=== PATIENT | female | born 1975 | race Two or more races ===

== ENCOUNTER 2018-12-16 10:50 | Emergency (ER) | payer SELFPAY ==
[2018-12-16] MEDS ORDERED: Sodium Chloride 0.9% 1,000 ML IV ONE (10:53)
[2018-12-16] MEDS ORDERED: Ondansetron 4 MG/2 ML SDV IVPUSH ONE (10:53)
[2018-12-16] MEDS ORDERED: Ketorolac 30 MG/ML SDV IVPUSH ONE (10:53)
--- NOTE | 2018-12-16 10:53 | EDM.PDOC ---
ED HPI GENERAL MEDICAL PROBLEM - General Chief Complaint: Abdominal Pain Stated Complaint: ABDOMINAL PAIN Time Seen by Provider: 12/16/18 10:53 Source of Information: Reports: Patient History Limitations: Reports: No Limitations - History of Present Illness INITIAL COMMENTS - FREE TEXT/NARRATIVE: HISTORY AND PHYSICAL: History of present illness: Patient is a 43-year-old female who presents to the emergency room today with complaints of right lower quadrant pain that radiates into her rectum. She has noticed these symptoms over the past weeks to months, but has been more bothersome over the past 2-3 days. She states she has been eating and drinking appropriately and the pain is not associated with eating or physical activity. Patient denies any fever, chills, headache, change in vision, syncope or near syncope. Denies any chest pain, back pain, shortness of breath or cough. Denies any vomiting, diarrhea, constipation or dysuria. Has not noted any blood in urine or stool. Patient has been eating and drinking appropriately. No rectal related injury or trauma. Review of systems: As per history of present illness and below otherwise all systems reviewed and negative. Past medical history: As per history of present illness and as reviewed below otherwise noncontributory. Surgical history: As per history of present illness and as reviewed below otherwise noncontributory. Social history: See social history for further information Family history: As per history of present illness and as reviewed below otherwise noncontributory. Physical exam: General: Well-developed and well-nourished 43-year-old female. Alert and oriented. Nontoxic appearing and in no acute distress. HEENT: Atraumatic, normocephalic, pupils equal and reactive bilaterally, negative for conjunctival pallor or scleral icterus, mucous membranes moist, trachea midline. No drooling or trismus noted. No meningeal signs. No hot potato voice noted. Lungs: Clear to auscultation, breath sounds equal bilaterally, chest nontender. Heart: S1S2, regular rate and rhythm without overt murmur Abdomen: Soft, nondistended, nontender. Negative for masses or hepatosplenomegaly. Negative for costovertebral tenderness. Pelvis: Stable nontender. Genitourinary: Deferred. Rectal: This was done with consent and a garment tag stringer at the bedside. Patient does have small external hemorrhoids noted at 6 o'clock position. Negative Hemoccult stool. She is uncomfortable with digital exam. No internal hemorrhoids were palpable Skin: Intact, warm, dry. No lesions or rashes noted. Extremities: Atraumatic, moves all extremities per self without difficulty or deficits. Neurovascular unremarkable. Neuro: Awake, alert, oriented. Cranial nerves II through XII unremarkable. Cerebellum unremarkable. Motor and sensory unremarkable throughout. Exam nonfocal. Notes: Lab work is unremarkable. CT shows mildly enlarged left ovary with rim enhancing cyst could be from early involution. Adjacent mesenteric edema which could potentially be rib related to the left ovary. Correlate with symptoms. Some vascularity appears to be present with enhancement but could consider pelvic ultrasound with Doppler evaluation to confirm ovarian arterial blood flow. Left side mesenteric edema is nonspecific and could also be associated with other inflammatory process however no associated bowel wall thickening, obstruction, mass, lymphadenopathy or extraluminal fluid collection. Ultrasound ordered, and shows no acute findings. Supportive care measures were reviewed and discussed. We'll give her a prescription for Anusol and tramadol. Encouraged her to follow-up with primary care. Voices understanding and is agreeable to plan of care. Denies any further questions or concerns at this time. Diagnostics: CBC, CMP, UA, urine , lipase, CT abdomen and pelvis, Pelvic ultrasound Therapeutics: IV fluid, Zofran, Toradol Prescription: Anusol Supp. Tramadol (#15) Impression: Abdominal pain Hemorrhoid, external Plan: 1. Briscoe diet, advance as tolerated. 2. Take the prescriptions as needed and as directed. 3. Follow-up with your primary care provider as we discussed. Return to the ED as needed and as discussed. Definitive disposition and diagnosis as appropriate pending reevaluation and review of above. Right Lower Abdominal Pain Score (Numeric/FACES): 10 - Related Data Allergies Allergy/AdvReac Type Severity Reaction Status Date / Time No Known Allergies Allergy Verified 12/16/18 11:07 Home Meds: Home Meds . [No Known Home Meds] 12/16/18 [History] ED ROS GENERAL - Review of Systems Review Of Systems: ROS reveals no pertinent complaints other than HPI. ED EXAM, GI/ABD - Physical Exam Exam: See Below (See dictation) Course - Vital Signs Last Recorded V/S: Last Vital Signs Temp 96.8 F 12/16/18 10:51 Pulse 65 12/16/18 15:28 Resp 18 12/16/18 15:28 BP 98/59 L 12/16/18 15:28 Pulse Ox 97 12/16/18 15:28 - Orders/Labs/Meds Orders: Active Orders 24 hr Category Date Time Status Hemoccult [Fecal Occult Blood Collection] [RC] Care 12/16/18 11:14 Active ASDIRECTED Labs: Laboratory Tests 12/16/18 12/16/18 12/16/18 Range/Units 11:10 11:10 11:20 WBC 4.66 (4.0-11.0) K/uL RBC 4.34 (4.30-5.90) M/uL Hgb 12.7 (12.0-16.0) g/dL Hct 37.7 (36.0-46.0) % MCV 86.9 (80.0-98.0) fL MCH 29.3 (27.0-32.0) pg MCHC 33.7 (31.0-37.0) g/dL RDW Std Deviation 44.3 (28.0-62.0) fl RDW Coeff of Kye 14 (11.0-15.0) % Plt Count 272 (150-400) K/uL MPV 10.00 (7.40-12.00) fL Neut % (Auto) 64.5 (48.0-80.0) % Lymph % (Auto) 25.8 (16.0-40.0) % [place] % (Auto) 8.2 (0.0-15.0) % Eos % (Auto) 1.3 (0.0-7.0) % Baso % (Auto) 0.2 (0.0-1.5) % Neut # (Auto) 3.0 (1.4-5.7) K/uL Lymph # (Auto) 1.2 (0.6-2.4) K/uL [place] # (Auto) 0.4 (0.0-0.8) K/uL Eos # (Auto) 0.1 (0.0-0.7) K/uL Baso # (Auto) 0.0 (0.0-0.1) K/uL Nucleated RBC % 0.0 /100WBC Nucleated RBCs # 0 K/uL Sodium 135 L (136-145) mmol/L Potassium 3.9 (3.5-5.1) mmol/L Chloride 101 (98-107) mmol/L Carbon Dioxide 28.1 (21.0-32.0) mmol/L BUN 15 (7.0-18.0) mg/dL Creatinine 0.8 (0.6-1.0) mg/dL Est Cr Clr Drug Dosing TNP Estimated GFR (MDRD) > 60.0 ml/min Glucose 84 (74-106) mg/dL Calcium 9.0 (8.5-10.1) mg/dL Total Bilirubin 0.4 (0.2-1.0) mg/dL AST 16 (15-37) IU/L ALT 22 (14-63) IU/L Alkaline Phosphatase 76 (46-116) U/L Total Protein 7.7 (6.4-8.2) g/dL Albumin 3.8 (3.4-5.0) g/dL Globulin 3.9 (2.6-4.0) g/dL Albumin/Globulin Ratio 1.0 (0.9-1.6) Lipase 156 (73-393) U/L Urine Color YELLOW Urine Appearance CLEAR Urine pH 6.0 (5.0-8.0) Ur Specific [place] 1.020 (1.001-1.035) Urine Protein NEGATIVE (NEGATIVE) mg/dL Urine Glucose (UA) NEGATIVE (NEGATIVE) mg/dL Urine Ketones NEGATIVE (NEGATIVE) mg/dL Urine Occult Blood NEGATIVE (NEGATIVE) Urine Nitrite NEGATIVE (NEGATIVE) Urine Bilirubin NEGATIVE (NEGATIVE) Urine Urobilinogen 0.2 (<2.0) EU/dL Ur Leukocyte Esterase NEGATIVE (NEGATIVE) Urine HCG, Qual (NEGATIVE) 12/16/18 Range/Units 11:20 WBC (4.0-11.0) K/uL RBC (4.30-5.90) M/uL Hgb (12.0-16.0) g/dL Hct (36.0-46.0) % MCV (80.0-98.0) fL MCH (27.0-32.0) pg MCHC (31.0-37.0) g/dL RDW Std Deviation (28.0-62.0) fl RDW Coeff of Kye (11.0-15.0) % Plt Count (150-400) K/uL MPV (7.40-12.00) fL Neut % (Auto) (48.0-80.0) % Lymph % (Auto) (16.0-40.0) % [place] % (Auto) (0.0-15.0) % Eos % (Auto) (0.0-7.0) % Baso % (Auto) (0.0-1.5) % Neut # (Auto) (1.4-5.7) K/uL Lymph # (Auto) (0.6-2.4) K/uL [place] # (Auto) (0.0-0.8) K/uL Eos # (Auto) (0.0-0.7) K/uL Baso # (Auto) (0.0-0.1) K/uL Nucleated RBC % /100WBC Nucleated RBCs # K/uL Sodium (136-145) mmol/L Potassium (3.5-5.1) mmol/L Chloride (98-107) mmol/L Carbon Dioxide (21.0-32.0) mmol/L BUN (7.0-18.0) mg/dL Creatinine (0.6-1.0) mg/dL Est Cr Clr Drug Dosing Estimated GFR (MDRD) ml/min Glucose (74-106) mg/dL Calcium (8.5-10.1) mg/dL Total Bilirubin (0.2-1.0) mg/dL AST (15-37) IU/L ALT (14-63) IU/L Alkaline Phosphatase (46-116) U/L Total Protein (6.4-8.2) g/dL Albumin (3.4-5.0) g/dL Globulin (2.6-4.0) g/dL Albumin/Globulin Ratio (0.9-1.6) Lipase (73-393) U/L Urine Color Urine Appearance Urine pH (5.0-8.0) Ur Specific [place] (1.001-1.035) Urine Protein (NEGATIVE) mg/dL Urine Glucose (UA) (NEGATIVE) mg/dL Urine Ketones (NEGATIVE) mg/dL Urine Occult Blood (NEGATIVE) Urine Nitrite (NEGATIVE) Urine Bilirubin (NEGATIVE) Urine Urobilinogen (<2.0) EU/dL Ur Leukocyte Esterase (NEGATIVE) Urine HCG, Qual NEGATIVE (NEGATIVE) Meds: Medications Discontinued Medications Generic Name Dose Route Start Last Admin Trade Name Freq PRN Reason Stop Dose Admin Sodium Chloride 1,000 mls @ 999 mls/hr 12/16/18 10:53 12/16/18 11:16 Normal Saline IV 12/16/18 11:53 999 mls/hr STAT ONE Administration Ketorolac Tromethamine 30 mg 12/16/18 10:53 12/16/18 11:16 Toradol IVPUSH 12/16/18 10:54 30 mg ONETIME ONE Administration Morphine Sulfate 2 mg 12/16/18 12:05 12/16/18 12:13 Morphine IVPUSH 12/16/18 12:06 2 mg ONETIME ONE Administration Ondansetron HCl 4 mg 12/16/18 10:53 12/16/18 11:16 Zofran IVPUSH 12/16/18 10:54 4 mg ONETIME ONE Administration Departure - Departure Time of Disposition: 15:20 Disposition: Home, Self-Care 01 Clinical Impression: External hemorrhoid, Right sided abdominal pain - Discharge Information Instructions: Abdominal Pain, Adult, [id number] Referrals: PCP,None [Primary Care Provider] - Forms: ED Department Discharge Additional Instructions: The following information is given to patients seen in the emergency department who are being discharged to home. This information is to outline your options for follow-up care. We provide all patients seen in our emergency department with a follow-up referral. The need for follow-up, as well as the timing and circumstances, are variable depending upon the specifics of your emergency department visit. If you don't have a primary care physician on staff, we will provide you with a referral. We always advise you to contact your personal physician following an emergency department visit to inform them of the circumstance of the visit and for follow-up with them and/or the need for any referrals to a consulting specialist. The emergency department will also refer you to a specialist when appropriate. This referral assures that you have the opportunity for follow-up care with a specialist. All of these measure are taken in an effort to provide you with optimal care, which includes your follow-up. Under all circumstances we always encourage you to contact your private physician who remains a resource for coordinating your care. When calling for follow-up care, please make the office aware that this follow-up is from your recent emergency room visit. If for any reason you are refused follow-up, please contact the [facility] Emergency Department at and asked to speak to the emergency department charge nurse. [facility] [address] [place] [address] [address] 1. [place] diet, advance as tolerated. 2. Take the prescriptions as needed and as directed. 3. Follow-up with your primary care provider as we discussed. Return to the ED as needed and as discussed. - My Orders Last 24 Hours: My Active Orders 12/16/18 11:14 Hemoccult [Fecal Occult Blood Collection] [RC] ASDIRECTED - Assessment/Plan Last 24 Hours: My Active Orders 12/16/18 11:14 Hemoccult [Fecal Occult Blood Collection] [RC] ASDIRECTED
[2018-12-16 11:58] LABS: CHLORIDE,CL 101 mmol/L (98-107); SODIUM,NA 135 mmol/L (136-145)
[2018-12-16] MEDS ORDERED: Morphine 2 MG/ML Syringe IVPUSH ONE (12:05)
--- NOTE | 2018-12-16 14:03 | CT ---
INDICATION : Lower quadrant pain TECHNIQUE : CT Scan of the abdomen pelvis. 100 cc nonionic IV contrast COMPARISON : No comparison FINDINGS: Pelvis: The uterus is normal size. Nabothian cysts in the cervix. The left ovary is enlarged. A cyst in the left ovary shows some rim enhancement with a slight undulating margins. The cyst measures approximately 2 cm. Some edema is present in the adjacent mesenteric fat, lateral to the left ovary with some thickening of the posterior peritoneum. Small calcification is also present in the left ovary. No free fluid in the pelvis. The right ovary is unremarkable. Mildly prominent endometrial complex most likely related to menstrual secretory phase cycle. The bladder is unremarkable. Liver: Mild periportal low attenuation and edema which is nonspecific. No biliary dilatation. No calcifications in the gallbladder. Spleen, pancreas, adrenal glands, kidneys: No significant abnormality. Normal renal cortical enhancement. GI tract: Normal caliber. Multiple decompressed loops of small bowel in the left abdomen in the area of the left-sided mesenteric edema. No signs for obstruction. Lung bases: Small triangular opacity right middle lobe subpleural probably an incidental intrapulmonary lymph node. Skeletal: Normal for age. IMPRESSION: 1. Mildly enlarged left ovary with rim enhancing cyst could be from early involution. Adjacent mesenteric edema which could potentially be rib related to the left ovary. Correlate with symptoms. Some vascularity appears to be present with enhancement but could consider pelvic ultrasound with Doppler evaluation to confirm ovarian arterial blood flow. 2. Left side mesenteric edema is nonspecific and could also be associated with other inflammatory process however no associated bowel wall thickening, obstruction, mass, lymphadenopathy or extraluminal fluid collection. Please note that all CT scans at this facility use dose modulation, iterative reconstruction, and/or weight-based dosing when appropriate to reduce radiation dose to as low as reasonably achievable. Dictated by Bienvenido Puente MD @ Dec 16 2018 2:02PM Signed by Dr. Bienvenido Puente @ Dec 16 2018 2:02PM
--- NOTE | 2018-12-16 15:12 | US ---
EXAMINATION: Transabdominal pelvic ultrasound HISTORY: Pain COMPARISON: CT from the same day. TECHNIQUE: Grayscale, color Doppler, and spectral Doppler imaging obtained. FINDINGS: Uterus is normal in size, contour, and echogenicity. The endometrial stripe thickness measures 1.3 cm. No uterine mass. Both the left and right ovaries are normal in size, contour, and echogenicity without an adnexal mass. Normal color and spectral Doppler flow. No significant free pelvic fluid. IMPRESSION: 1. Mildly prominent endometrial stripe, otherwise unremarkable pelvic ultrasound.
== END 2018-12-16 15:33 | disposition home or self-care (01) ==
LOC: MW.ED 10:50
DX: K64.4 Residual hemorrhoidal skin tags (principal); R10.31 Right lower quadrant pain
CPT/HCPCS: 36415; 74177; 76856; 80053; 81003; 81025; 83690; 85025; 96361; 96374; 96375; 99284; J1885; J2270; J2405; J7040

== ENCOUNTER 2019-02-08 08:21 | Emergency (ER) | payer SELFPAY ==
--- NOTE | 2019-02-08 08:34 | EDM.PDOC ---
ED HPI GENERAL MEDICAL PROBLEM - General Chief Complaint: Lower Extremity Injury/Pain Stated Complaint: ANKLE INJURY Time Seen by Provider: 02/08/19 08:24 Source of Information: Reports: Patient History Limitations: Reports: No Limitations - History of Present Illness INITIAL COMMENTS - FREE TEXT/NARRATIVE: History of present illness: []Patient twisted her right ankle this weekend and continued to walk on it this morning she had worsening pain and swelling. tingling. Review of systems: As per history of present illness and below otherwise all systems reviewed and negative. Past medical history: As per history of present illness and as reviewed below otherwise noncontributory. Surgical history: As per history of present illness and as reviewed below otherwise noncontributory. Social history: No reported history of drug or alcohol abuse. Family history: As per history of present illness and as reviewed below otherwise noncontributory. Physical exam: General: Well developed, well nourished in NAD HEENT: Atraumatic, normocephalic, pupils reactive, negative for conjunctival pallor or scleral icterus, mucous membranes moist, throat clear, neck supple, nontender, trachea midline. Lungs: Clear to auscultation, breath sounds equal bilaterally, chest nontender. Heart: S1S2, regular, negative for clicks, rubs, or JVD. Abdomen: NABS, Soft, nondistended, nontender. Negative for masses or hepatosplenomegaly. Negative for costovertebral tenderness. Pelvis: Stable nontender. Genitourinary: Deferred. Rectal: Deferred. Extremities: Atraumatic, or lateral malleolus tender is medial NVI negative for cords or calf pain. Neurovascular unremarkable. Neuro: Awake, alert, oriented. Cranial nerves II through XII unremarkable. Cerebellum unremarkable. Motor and sensory unremarkable throughout. Exam nonfocal. Skin:warm and dry Diagnostics: X-ray right ankle negative Therapeutics: Ibuprofen, splint ED Course: Stable Impression: Right ankle sprain Prescriptions: None Plan: Alejo ankle as much as possible, Take Tylenol and/or ibuprofen as directed, follow up with your primary care physician, return to ER if symptoms worsen or change. Definitive disposition and diagnosis as appropriate pending reevaluation and review of above. Right Ankle Pain Score (Numeric/FACES): 9 - Related Data Allergies Allergy/AdvReac Type Severity Reaction Status Date / Time No Known Allergies Allergy Verified 02/08/19 08:34 Home Meds: Home Meds . [No Known Home Meds] 12/16/18 [History] Past Medical History - Infectious Disease History Infectious Disease History: Reports: Chicken Pox, Measles, Mumps - Past Surgical History Female Surgical History: Reports: Tubal Ligation Social & Family History - Family History Family Medical History: Noncontributory Review of Systems - Review of Systems Review Of Systems: See Below ED EXAM, GENERAL - Physical Exam Exam: See Below Course - Vital Signs Last Recorded V/S: Last Vital Signs Temp 97.7 F 02/08/19 08:33 Pulse 86 02/08/19 08:33 Resp 18 02/08/19 08:33 BP 91/56 L 02/08/19 08:33 Pulse Ox 97 02/08/19 08:33 - Orders/Labs/Meds Orders: Active Orders 24 hr Category Date Time Status Splinting [RC] ASDIRECTED Care 02/08/19 09:23 Active Meds: Medications Discontinued Medications Generic Name Dose Route Start Last Admin Trade Name Cheryl PRN Reason Stop Dose Admin Ibuprofen 600 mg 02/08/19 08:41 02/08/19 09:04 Motrin PO 02/08/19 08:42 600 mg ONETIME ONE Administration Departure - Departure Time of Disposition: 09:34 Disposition: Home, Self-Care 01 Condition: Good Clinical Impression: Ankle sprain Qualifiers: Encounter type: initial encounter Involved ligament of ankle: unspecified ligament Laterality: right Qualified Code(s): S93.401A - Sprain of unspecified ligament of right ankle, initial encounter - Discharge Information *PRESCRIPTION DRUG MONITORING PROGRAM REVIEWED*: No *COPY OF PRESCRIPTION DRUG MONITORING REPORT IN PATIENT NHAN: No Referrals: PCP,Unknown [Primary Care Provider] - Forms: ED Department Discharge Additional Instructions: The following information is given to patients seen in the emergency department who are being discharged to home. This information is to outline your options for follow-up care. We provide all patients seen in our emergency department with a follow-up referral. The need for follow-up, as well as the timing and circumstances, are variable depending upon the specifics of your emergency department visit. If you don't have a primary care physician on staff, we will provide you with a referral. We always advise you to contact your personal physician following an emergency department visit to inform them of the circumstance of the visit and for follow-up with them and/or the need for any referrals to a consulting specialist. The emergency department will also refer you to a specialist when appropriate. This referral assures that you have the opportunity for follow-up care with a specialist. All of these measure are taken in an effort to provide you with optimal care, which includes your follow-up. Under all circumstances we always encourage you to contact your private physician who remains a resource for coordinating your care. When calling for follow-up care, please make the office aware that this follow-up is from your recent emergency room visit. If for any reason you are refused follow-up, please contact the [facility] Emergency Department at and asked to speak to the emergency department charge nurse. Take Tylenol and/or Motrin as directed, follow up with your primary care physician, return to ER if symptoms worsen or change. [facility] [address] [place] [address] - My Orders Last 24 Hours: My Active Orders 02/08/19 09:23 Splinting [RC] ASDIRECTED - Assessment/Plan Last 24 Hours: My Active Orders 02/08/19 09:23 Splinting [RC] ASDIRECTED
[2019-02-08] MEDS ORDERED: Ibuprofen 600 MG Tab PO ONE (08:41)
--- NOTE | 2019-02-08 09:25 | CR ---
INDICATION: Right ankle pain. TECHNIQUE: Three views of the right ankle. COMPARISON: None. FINDINGS: No soft tissue swelling, fracture, joint space narrowing or other abnormality. IMPRESSION: Negative right ankle. Dictated by Cirilo Henry MD @ Feb 08 2019 9:23AM Signed by Dr. Cirilo Henry @ Feb 08 2019 9:24AM
== END 2019-02-08 10:00 | disposition home or self-care (01) ==
LOC: MW.ED 08:21
DX: S93.401A Sprain of unspecified ligament of right ankle, initial encounter (principal); X50.9XXA Other and unspecified overexertion or strenuous movements or postures, initial encounter
CPT/HCPCS: 73610; 99283; A9270; 99282

== ENCOUNTER 2019-09-10 08:20 | Emergency (ER) | payer SELFPAY ==
--- NOTE | 2019-09-10 08:43 | EDM.PDOC ---
ED HPI GENERAL MEDICAL PROBLEM - General Chief Complaint: Fever Stated Complaint: FEVER/COUGH Time Seen by Provider: 09/10/19 08:32 Source of Information: Reports: Patient History Limitations: Reports: No Limitations, Language Barrier (translation provided by kaitlin, and myself) - History of Present Illness INITIAL COMMENTS - FREE TEXT/NARRATIVE: HISTORY OF PRESENT ILLNESS: Patient is a 43-year-old female who presents with 2 -day history of tactile fever sore throat and body aches. Pt reports odynophagia , 01/06. She denies any rash or neck stiffness. No known exposure to strep. Denies any chest pain or dyspnea. Has very mild occasional dry cough. No wheezing. No abdominal pain, vomiting or diarrhea. No urinary symptoms. No recent travel. REVIEW OF SYSTEMS: Other than the symptoms associated with the present events, the following is reported with regard to recent health: General: (+)tactile fever. HENT: (-) congestion. Respiratory: (+) cough. Cardiovascular: (-) chest pain. GI: (-) abdominal pain. : (-) urinary complaints. Musculoskeletal: (+) generalized myalgias. Endocrine: (-) generalized weakness. Neurological: (-) localized weakness. Skin: (-) rash PAST MEDICAL HISTORY: reviewed as per nursing notes SOCIAL HISTORY: reviewed as per nursing notes, MEDICATIONS: Per nurse's note ALLERGIES: Per nurse's note, reviewed by me PHYSICAL EXAMINATION: GENERALIZED APPEARANCE: well developed, well nourished in no distress VITAL SIGNS: Per nurse's note, reviewed by me SKIN: Warm, dry; (-) cyanosis; (-) rash. HEAD: (-) scalp swelling, (-) tenderness. EYES: (-) conjunctival pallor, (-) scleral icterus. ENMT: (-) stridor; mucous membranes moist. Mild pharyngeal erythema. No exudate. Uvula midline. No phonation changes. No trismus. Airway widely patent. NECK: (-) tenderness, (-) stiffness, CHEST AND RESPIRATORY: (-) rales, (-) rhonchi, (-) wheezes; breath sounds equal bilaterally. HEART AND CARDIOVASCULAR: (-) irregularity; (-) murmur, (-) gallop. ABDOMEN AND GI: Soft; (-) tenderness, (-) guarding, (-) rebound, (-) palpable masses, EXTREMITIES: (-) deformity, (-) edema. NEURO AND PSYCH: Alert. Cranial nerves grossly intact; strength symmetric. gait steady DIAGNOSTICS: strep neg influenza neg EMERGENCY DEPARTMENT COURSE AND TREATMENT: Patient's condition remained stable during Emergency Department evaluation. Based on history, physical exam, and diagnostic evaluation, the patient has symptoms consistent with acute pharyngitis. There is no obvious swelling of the peritonsillar area or abscess. The airway appears patent and respiratory pattern is normal. The patient has no trismus and is tolerating oral food and fluid. I felt that outpatient management with close followup by the patient's primary care provider in 1-2 days was appropriate. The patient's questions were answered, and discharge precautions and reasons to return to the clinic were discussed. The patient understands to return to the ED if symptoms do not improve as discussed, or if symptoms worsen. PLAN AND FOLLOW-UP: Patient received written and verbal instructions regarding this condition. Return to ED immediately with any new or worsening symptoms. Follow up to be arranged by patient with pcp in 1-2 days for further evaluation. Given discharge precautions. Patient expressed verbal understanding. Generalized Pain Score (Numeric/FACES): 6 - Related Data Allergies Allergy/AdvReac Type Severity Reaction Status Date / Time No Known Allergies Allergy Verified 09/10/19 08:37 Home Meds: Home Meds . [No Known Home Meds] 12/16/18 [History] Past Medical History - Past Health History Medical/Surgical History: Denies Medical/Surgical History - Infectious Disease History Infectious Disease History: Reports: Chicken Pox, Measles, Mumps - Past Surgical History Female Surgical History: Reports: Tubal Ligation Social & Family History - Family History Family Medical History: Noncontributory ED ROS GENERAL - Review of Systems Review Of Systems: See Below (see dictation) ED EXAM, GENERAL - Physical Exam Exam: See Below (see dictation) Course - Vital Signs Last Recorded V/S: Last Vital Signs Temp 97.6 F 09/10/19 08:37 Pulse 62 09/10/19 09:27 Resp 14 09/10/19 09:27 BP 110/72 09/10/19 09:27 Pulse Ox 98 09/10/19 09:27 - Orders/Labs/Meds Orders: Active Orders 24 hr Category Date Time Status CULTURE STREP A CONFIRMATION [RM] Stat Lab 09/10/19 08:30 Results STREP SCRN A RAPID W CULT CONF [RM] Stat Lab 09/10/19 08:30 Results Isolation [COMM] Routine Oth 09/10/19 08:36 Active Meds: Medications Discontinued Medications Generic Name Dose Route Start Last Admin Trade Name Cheryl PRN Reason Stop Dose Admin Dexamethasone 6 mg 09/10/19 09:17 09/10/19 09:22 Dexamethasone IM 09/10/19 09:18 6 mg ONETIME ONE Administration Departure - Departure Time of Disposition: :18 Disposition: Home, Self-Care 01 Condition: Good Clinical Impression: Pharyngitis - Discharge Information *PRESCRIPTION DRUG MONITORING PROGRAM REVIEWED*: Not Applicable *COPY OF PRESCRIPTION DRUG MONITORING REPORT IN PATIENT NHAN: Not Applicable Instructions: Pharyngitis, [id number] Referrals: PCP,Shen [Primary Care Provider] - Maximiliano Wilder [Ordering Only Provider] - 2 Days Forms: ED Department Discharge Additional Instructions: The following information is given to patients seen in the emergency department who are being discharged to home. This information is to outline your options for follow-up care. We provide all patients seen in our emergency department with a follow-up referral. The need for follow-up, as well as the timing and circumstances, are variable depending upon the specifics of your emergency department visit. If you don't have a primary care physician on staff, we will provide you with a referral. We always advise you to contact your personal physician following an emergency department visit to inform them of the circumstance of the visit and for follow-up with them and/or the need for any referrals to a consulting specialist. The emergency department will also refer you to a specialist when appropriate. This referral assures that you have the opportunity for follow-up care with a specialist. All of these measure are taken in an effort to provide you with optimal care, which includes your follow-up. Under all circumstances we always encourage you to contact your private physician who remains a resource for coordinating your care. When calling for follow-up care, please make the office aware that this follow-up is from your recent emergency room visit. If for any reason you are refused follow-up, please contact the [facility] Emergency Department at and asked to speak to the emergency department charge nurse. Sepsis Event Note - Focused Exam Vital Signs: Vital Signs Temp Pulse Resp BP Pulse Ox 09/10/19 09:27 62 14 110/72 98 09/10/19 08:37 97.6 F 86 15 106/54 L 96 Date Exam was Performed: 09/10/19 Time Exam was Performed: 11:01 - My Orders Last 24 Hours: My Active Orders 09/10/19 08:30 CULTURE STREP A CONFIRMATION [RM] Stat STREP SCRN A RAPID W CULT CONF [RM] Stat 09/10/19 08:36 Isolation [COMM] Routine - Assessment/Plan Last 24 Hours: My Active Orders 09/10/19 08:30 CULTURE STREP A CONFIRMATION [RM] Stat STREP SCRN A RAPID W CULT CONF [RM] Stat 09/10/19 08:36 Isolation [COMM] Routine
[2019-09-10] MEDS ORDERED: Dexamethasone 10 MG/ML SDV IM ONE (09:17)
== END 2019-09-10 09:27 | disposition home or self-care (01) ==
LOC: MW.ED 08:20
DX: J02.9 Acute pharyngitis, unspecified (principal)
CPT/HCPCS: 87081; 87804; 87880; 96372; 99283; J1100; 99282